=== PATIENT | male | born 1980 | race Caucasian/White ===

== ENCOUNTER 2017-10-05 21:38 | Emergency (ER) | payer OTHER ==
--- NOTE | 2017-10-05 22:41 | ED ---
Dizziness HPI - General Chief Complaint: Dizziness Stated Complaint: foot problems Time Seen by Provider: 10/05/17 22:01 Source: patient Mode of arrival: ambulatory Limitations: no limitations - History of Present Illness Initial Comments: This patient is a 36-year-old man who presents with complaint that he has been having about a week of symptoms that is concerning for possibly developing diabetes. The patient states that he has multiple family members who have had diabetes. He states that for up to about a week he has been feeling somewhat "dizzy" when he stands up. Further questioning reveals that he is not really having vertiginous symptoms but more like some lightheadedness when he first stands. In addition he has been having some tingling of the extremities bilaterally. The patient relates that between a week and 2 ago he had Moser's palsy and he did recently have a course of steroids that he just finished. MD Complaint: dizziness Onset/Timin -: week(s) Timing: gradual onset Description: lightheadedness History of Same: No History of Trauma: No Severity: mild Worsens With: exertion - Related Data Previous Rx's Medication Instructions Recorded traMADol HCL [Ultram] 50 mg PO Q4HR PRN #30 tab 10/24/14 Allergies Allergy/AdvReac Type Severity Reaction Status Date / Time No Known Allergies Allergy Verified 10/05/17 21:59 Review of Systems ROS Statement: Those systems with pertinent positive or pertinent negative responses have been documented in the HPI. ROS Other: All systems not noted in ROS Statement are negative. Constitutional: Denies: fever, chills, weakness Eyes: Denies: vision change Respiratory: Denies: cough, dyspnea, wheezes Cardiovascular: Denies: chest pain, palpitations, dyspnea on exertion, edema, syncope Gastrointestinal: Denies: abdominal pain, nausea, vomiting, diarrhea Genitourinary: Denies: dysuria, hematuria Musculoskeletal: Denies: back pain Skin: Denies: rash Neurological: Reports: paresthesias. Denies: headache, weakness, numbness, confusion, vertigo Past Medical History Past Medical History: No Reported History History of Any Multi-Drug Resistant Organisms: None Reported Past Surgical History: No Surgical Hx Reported Past Psychological History: No Psychological Hx Reported Smoking Status: Current some day smoker Past Alcohol Use History: Occasional Past Drug Use History: None Reported General Exam Limitations: no limitations General appearance: alert, in no apparent distress, obese Head exam: Present: atraumatic, normocephalic Eye exam: Present: normal appearance. Absent: scleral icterus, conjunctival injection ENT exam: Present: mucous membranes dry Neck exam: Present: normal inspection, full ROM Respiratory exam: Present: normal lung sounds bilaterally. Absent: respiratory distress, wheezes, rales, rhonchi, stridor Cardiovascular Exam: Present: normal rhythm, tachycardia (Rate approximately 104 at my exam), normal heart sounds. Absent: systolic murmur, diastolic murmur , rubs, gallop GI/Abdominal exam: Present: soft. Absent: distended, tenderness, guarding, rebound, mass Extremities exam: Present: normal inspection, normal capillary refill. Absent: pedal edema, calf tenderness Back exam: Present: normal inspection. Absent: CVA tenderness (R), CVA tenderness (L) Neurological exam: Present: alert, oriented X3, other (There is just a trace of left sided facial weakness that does involve the upper face as well as lower.). Absent: motor sensory deficit Skin exam: Present: warm, dry, intact, normal color. Absent: rash Course Vital Signs 10/05/17 21:56 Temperature 98.3 F Pulse Rate 114 H Respiratory 20 Rate Blood Pressure 160/99 O2 Sat by Pulse 96 Oximetry EKG Findings - EKG Results: EKG: interpreted by DENICE, sinus rhythm, normal axis, normal QRS, normal ST/T EKG shows: tachycardia (Rate approximately 102 BPM) Medical Decision Making - Lab Data Result diagrams: 10/05/17 22:58 10/05/17 22:58 Lab Results 10/05/17 10/05/17 10/05/17 Range/Units 22:58 22:58 22:58 WBC 8.5 (3.8-10.6) k/uL RBC 5.37 (4.30-5.90) m/uL Hgb 15.8 (13.0-17.5) gm/dL Hct 46.4 (39.0-53.0) % MCV 86.4 (80.0-100.0) fL MCH 29.4 (25.0-35.0) pg MCHC 34.1 (31.0-37.0) g/dL RDW 12.6 (11.5-15.5) % Plt Count 243 (150-450) k/uL Neutrophils % 72 % Lymphocytes % 19 % Monocytes % 6 % Eosinophils % 1 % Basophils % 0 % Neutrophils # 6.1 (1.3-7.7) k/uL Lymphocytes # 1.6 (1.0-4.8) k/uL Monocytes # 0.5 (0-1.0) k/uL Eosinophils # 0.1 (0-0.7) k/uL Basophils # 0.0 (0-0.2) k/uL Sodium 140 (137-145) mmol/L Potassium 3.8 (3.5-5.1) mmol/L Chloride 107 (98-107) mmol/L Carbon Dioxide 23 (22-30) mmol/L Anion Gap 10 mmol/L BUN 21 H (9-20) mg/dL Creatinine 1.10 (0.66-1.25) mg/dL Est GFR (CKD-EPI)AfAm >90 (>60 ml/min/1.73 sqM) Est GFR (CKD-EPI)NonAf 86 (>60 ml/min/1.73 sqM) Glucose 124 H (74-99) mg/dL Calcium 9.8 (8.4-10.2) mg/dL Magnesium 2.1 (1.6-2.3) mg/dL Total Bilirubin 0.5 (0.2-1.3) mg/dL AST 24 (17-59) U/L ALT 40 (21-72) U/L Alkaline Phosphatase 57 (38-126) U/L Total Protein 6.9 (6.3-8.2) g/dL Albumin 4.4 (3.5-5.0) g/dL Urine Color Yellow Urine Appearance Clear (Clear) Urine pH 6.0 (5.0-8.0) Ur Specific Reading 1.022 (1.001-1.035) Urine Protein Negative (Negative) Urine Glucose (UA) Negative (Negative) Urine Ketones Negative (Negative) Urine Blood Negative (Negative) Urine Nitrite Negative (Negative) Urine Bilirubin Negative (Negative) Urine Urobilinogen 2.0 (<2.0) mg/dL Ur Leukocyte Esterase Negative (Negative) Disposition Clinical Impression: Dehydration Disposition: HOME SELF-CARE Condition: Good Instructions: Dizziness (ED), Dehydration (ED) Additional Instructions: As we discussed, follow-up to have a fasting blood sugar checked. Referrals: Beatrice Lazo MD [STAFF PHYSICIAN] - 1-2 days
[2017-10-05 23:06] LABS: Appearance,Urine Clear (Clear); Bilirubin,Urine Negative (Negative); Blood,Urine Negative (Negative); Color,Urine Yellow; Glucose,Urine (UA) Negative (Negative); Ketones,Urine Negative (Negative); Leukocyte Esterase,Urine Negative (Negative); Nitrite,Urine Negative (Negative); Protein,Urine Negative (Negative); Specific Gravity,Urine 1.022 (1.001-1.035)
[2017-10-05 23:12] LABS: Basophils % (A) 0 %; Eosinophils # (A) 0.1 k/uL (0-0.7); Eosinophils % (A) 1 %; HCT 46.4 % (39.0-53.0); HGB 15.8 gm/dL (13.0-17.5); Lymphocytes # (A) 1.6 k/uL (1.0-4.8); Lymphocytes % (A) 19 %; MCH 29.4 pg (25.0-35.0); MCHC 34.1 g/dL (31.0-37.0); MCV 86.4 fL (80.0-100.0); Mean Platelet Volume 6.6; Monocytes # (A) 0.5 k/uL (0-1.0); Monocytes % (A) 6 %; Neutrophils # (A) 6.1 k/uL (1.3-7.7); Neutrophils % (A) 72 %; Platelet Count 243 k/uL (150-450); RBC 5.37 m/uL (4.30-5.90); RDW 12.6 % (11.5-15.5); WBC 8.5 k/uL (3.8-10.6)
[2017-10-05 23:19] LABS: ALT 40 U/L (21-72); AST 24 U/L (17-59); Albumin 4.4 g/dL (3.5-5.0); Alkaline Phosphatase 57 U/L (38-126); Anion Gap 10 mmol/L; Blood Urea Nitrogen 21 mg/dL (9-20); Calcium 9.8 mg/dL (8.4-10.2); Carbon Dioxide 23 mmol/L (22-30); Chloride 107 mmol/L (98-107); Glucose 124 mg/dL (74-99); Magnesium 2.1 mg/dL (1.6-2.3); Potassium 3.8 mmol/L (3.5-5.1); Sodium 140 mmol/L (137-145); Total Bilirubin 0.5 mg/dL (0.2-1.3); Total Protein 6.9 g/dL (6.3-8.2)
[2017-10-05] MEDS ORDERED: SODIUM CHLORIDE 0.9% 1,000 ML IV ONE (23:41)
[2017-10-06 00:30] VITALS: BP 144/65; PULSE 78; RESP 18
[2017-10-06 01:09] VITALS: TEMP 97
== END 2017-10-06 01:08 | disposition home or self-care (01) ==
LOC: EC 21:38
DX: E86.0 Dehydration (principal); R00.0 Tachycardia, unspecified; R29.810 Facial weakness; R20.2 Paresthesia of skin; E66.9 Obesity, unspecified; F17.200 Nicotine dependence, unspecified, uncomplicated; Z68.38 Body mass index [BMI] 38.0-38.9, adult
CPT/HCPCS: 36415; 80053; 81003; 83735; 85025; 93005; 96360; 99284